=== PATIENT | female | born 1985 | race Hispanic/Latino ===

== ENCOUNTER 2018-11-04 08:42 | Emergency (ER) | payer OTHER ==
--- OUTSIDE RECORDS SUMMARY | 2018-11-04 08:44 | XMS REPORT ---
:1985 Author Organization [facility] Address [address] [place] [address] [address] [place] [address] Care Team Providers Name Role Phone Unavailable Unavailable Unavailable Problems This patient has no known problems. Allergies, Adverse Reactions, Alerts This patient has no known allergies or adverse reactions. Medications This patient has no known medications.
--- NOTE | 2018-11-04 09:03 | ER ---
Nurse's Notes [facility] Name: Maira Hoffman Age: 33 yrs Sex: Female : 1985 Arrival Date: 11/04/2018 Time: 08:45 Bed 14 Private MD: Diagnosis: Nonspecific lymphadenitis, unspecified Presentation: 11/04 08:47 Presenting complaint: Patient states: "knot" behind L ear x 2 days. Denies fever. ss Transition of care: patient was not received from another setting of care. Onset of symptoms was November 02, 2018. Risk Assessment: Do you want to hurt yourself or someone else? Patient reports no desire to harm self or others. Initial Sepsis Screen: Does the patient meet any 2 criteria? No. Patient's initial sepsis screen is negative. Does the patient have a suspected source of infection? No. Patient's initial sepsis screen is negative. Care prior to arrival: None. 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 - Social history:: Smoking status: Patient/guardian denies using tobacco. - Ebola Screening: : Patient denies exposure to infectious person Patient denies travel to an Ebola-affected area in the 21 days before illness onset. - Family history:: not pertinent. - Hospitalizations: : No recent hospitalization is reported. Screenin:50 Abuse screen: Denies threats or abuse. Denies injuries from another. Nutritional jl7 screening: No deficits noted. Tuberculosis screening: No symptoms or risk factors identified. Fall Risk None identified. Assessment: 08:50 General: Appears in no apparent distress. uncomfortable, Behavior is calm, cooperative, jl7 appropriate for age. Pain: Complains of pain in left base of the skull. Neuro: Level of Consciousness is awake, alert, obeys commands, Oriented to person, place, time, situation. Cardiovascular: Patient's skin is warm and dry. Respiratory: Airway is patent Respiratory effort is even, unlabored, Respiratory pattern is regular, symmetrical. EENT: Derm: Skin is pink, warm \\T\\ dry. Vital Signs: 08:48 BP 102 / 67; Pulse 71; Resp 16; Temp 97.3(TE); Pulse Ox 98% on R/A; Weight 113.4 kg; ss Height 5 ft. 10 in. (177.80 cm); Pain 7/10; 08:48 Body Mass Index 35.87 (113.40 kg, 177.80 cm) ED Course: 08:45 Patient arrived in ED. rg4 08:48 Triage completed. ss 08:48 Arm band placed on right wrist. ss 08:49 Abena Andino, RN is Primary Nurse. jl7 08:50 Jeff Gooden MD is Attending Physician. rn 08:50 Patient has correct armband on for positive identification. Bed in low position. Call jl7 light in reach. Side rails up X 1. 09:08 No provider procedures requiring assistance completed. Patient did not have IV access jl7 during this emergency room visit. Administered Medications: No medications were administered Outcome: 09:02 Discharge ordered by . rn 09:08 Discharged to home ambulatory. jl7 09:08 Condition: stable 09:08 Discharge instructions given to patient, Instructed on discharge instructions, follow up and referral plans. Demonstrated understanding of instructions, follow-up care. 09:08 Patient left the ED. jl7 Signatures: Jeff Gooden MD MD rn Smirch, Shelby, RN RN ss Garcia, Rubi 4 Abena Andino RN RN jl7
--- NOTE | 2018-11-04 09:03 | EDPHYS ---
Physician Documentation [facility] Name: Maira Hoffman Age: 33 yrs Sex: Female : 1985 Arrival Date: 11/04/2018 Time: 08:45 Bed 14 Private MD: ED Physician Jeff Gooden HPI: 11/04 08:59 This 33 yrs old Female presents to ER via Ambulatory with complaints of Knot rn Behind Ear, Ear Pain. 08:59 The patient presents with pain. The complaints affect the left base of the skull. rn Onset: The symptoms/episode began/occurred 1 week(s) ago. Modifying factors: The symptoms are alleviated by nothing, the symptoms are aggravated by touching. Severity of symptoms: At their worst the symptoms were mild in the emergency department the symptoms are unchanged. The patient has not experienced similar symptoms in the past. REports approx 1 week of runny nose, sore throat, fatigue, and noticed knot behind left ear, no trauma, no ear pain or drainage. NO weight loss, no hx of lymphoma. . 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 - Social history:: Smoking status: Patient/guardian denies using tobacco. - Ebola Screening: : Patient denies exposure to infectious person Patient denies travel to an Ebola-affected area in the 21 days before illness onset. - Family history:: not pertinent. - Hospitalizations: : No recent hospitalization is reported. ROS: 08:59 Constitutional: Negative for fever, chills, and weight loss, Eyes: Negative for injury, rn pain, redness, and discharge, ENT: Negative for injury, pain, and discharge, Neck: Negative for injury Cardiovascular: Negative for chest pain, palpitations, and edema, Respiratory: Negative for shortness of breath, cough, wheezing, and pleuritic chest pain, Abdomen/GI: Negative for abdominal pain, nausea, vomiting, diarrhea, and constipation, MS/Extremity: Negative for injury and deformity, Skin: Negative for injury, rash, and discoloration, Neuro: Negative for headache, weakness, numbness, tingling, and seizure. Exam: 08:59 Constitutional: This is a well developed, well nourished patient who is awake, alert, rn and in no acute distress. Head/Face: Normocephalic, atraumatic. Eyes: Pupils equal round and reactive to light, extra-ocular motions intact. Lids and lashes normal. Conjunctiva and sclera are non-icteric and not injected. Cornea within normal limits. Periorbital areas with no swelling, redness, or edema. ENT: MMM, no stridor, no oral swelling. + left posterior auricular swelling/tenderness that goes down left posterior/lateral neck, no skin changes, no bony tenderness. No fluctuance. NOrmal left TM and external auditory canal. Neck: Trachea midline, no thyromegaly or masses palpated, and no cervical lymphadenopathy. Supple, full range of motion without nuchal rigidity, or vertebral point tenderness. No Meningismus. Skin: Warm, dry with normal turgor. Normal color with no rashes, no lesions, and no evidence of cellulitis. MS/ Extremity: Pulses equal, no cyanosis. Neurovascular intact. Full, normal range of motion. Equal circumference. Neuro: Awake and alert, GCS 15, oriented to person, place, time, and situation. Cranial nerves II-XII grossly intact. Motor strength 5/5 in all extremities. Sensory grossly intact. Cerebellar exam normal. Normal gait. Vital Signs: 08:48 BP 102 / 67; Pulse 71; Resp 16; Temp 97.3(TE); Pulse Ox 98% on R/A; Weight 113.4 kg; ss Height 5 ft. 10 in. (177.80 cm); Pain 7/10; 08:48 Body Mass Index 35.87 (113.40 kg, 177.80 cm) ss MDM: 08:50 Patient medically screened. rn 08:59 Differential diagnosis: posterior auricular lymphadenopathy, viral syndrome, mono. Data rn reviewed: vital signs, nurses notes, and as a result, I will discharge patient. Counseling: I had a detailed discussion with the patient and/or guardian regarding: the historical points, exam findings, and any diagnostic results supporting the discharge/admit diagnosis, the need for outpatient follow up, to return to the emergency department if symptoms worsen or persist or if there are any questions or concerns that arise at home. Special discussion: I discussed with the patient/guardian in detail that at this point there is no indication for admission to the hospital. It is understood, however, that if the symptoms persist or worsen the patient needs to return immediately for re-evaluation. Administered Medications: No medications were administered Disposition: 11/04/18 09:02 Discharged to Home. Impression: Nonspecific lymphadenitis, unspecified. - Condition is Stable. - Discharge Instructions: Lymphadenopathy. - Medication Reconciliation Form, Thank You Letter, Antibiotic Education, Prescription Opioid Use form. - Follow up: Private Physician; When: As needed; Reason: Recheck today's complaints, Re-evaluation by your physician. - Problem is new. - Symptoms have improved. Signatures: Jeff Gooden MD MD rn Smirch, Shelby, RN RN ss Leal, Jahala, RN RN jl7 Corrections: (The following items were deleted from the chart) 09:03 08:59 Constitutional: This is a well developed, well nourished patient who is awake, rn alert, and in no acute distress. Head/Face: Normocephalic, atraumatic. Eyes: Pupils equal round and reactive to light, extra-ocular motions intact. Lids and lashes normal. Conjunctiva and sclera are non-icteric and not injected. Cornea within normal limits. Periorbital areas with no swelling, redness, or edema. ENT: MMM, no stridor, no oral swelling. + left posterior auricular swelling/tenderness that goes down left posterior/lateral neck, no skin changes, no bony tenderness. No fluctuance. Neck: Trachea midline, no thyromegaly or masses palpated, and no cervical lymphadenopathy. Supple, full range of motion without nuchal rigidity, or vertebral point tenderness. No Meningismus. Skin: Warm, dry with normal turgor. Normal color with no rashes, no lesions, and no evidence of cellulitis. MS/ Extremity: Pulses equal, no cyanosis. Neurovascular intact. Full, normal range of motion. Equal circumference. Neuro: Awake and alert, GCS 15, oriented to person, place, time, and situation. Cranial nerves II-XII grossly intact. Motor strength 5/5 in all extremities. Sensory grossly intact. Cerebellar exam normal. Normal gait. rn 09:08 09:02 11/04/2018 09:02 Discharged to Home. Impression: Nonspecific lymphadenitis, jl7 unspecified. Condition is Stable. Forms are Medication Reconciliation Form, Thank You Letter, Antibiotic Education, Prescription Opioid Use. Follow up: Private Physician; When: As needed; Reason: Recheck today's complaints, Re-evaluation by your physician. Problem is new. Symptoms have improved. rn
[2018-11-04 09:39] VITALS: BP 102/67; TEMP 97.3; O2SAT 98
== END 2018-11-04 09:08 | disposition home or self-care (01) ==
LOC: ER 08:42
DX: I88.9 Nonspecific lymphadenitis, unspecified (principal)
CPT/HCPCS: 99281